=== PATIENT | female | born 1985 | race Two or more races ===

== ENCOUNTER 2019-07-08 13:04 | Emergency (ER) | payer BC ==
[~2019-07-08] VITALS: Ht 152.4 cm; Wt 59.0 kg
[~2019-07-08 13:04] MED LIST: PREN-96 PO
[2019-07-08] MEDS ORDERED: SODIUM CHLORIDE 0.9% 1,000 ML IV ONE (13:20)
[2019-07-08 13:34] VITALS: BP 134/89
[2019-07-08 13:57] LABS: Eosinophils # (auto) 0.1 uL; Lymphocytes # (auto) 1.2 uL
[2019-07-08 13:58] LABS: Basophils # (auto) 0.1 uL; Basophils % (auto) 1.5 % (0.0-2.0); Hematocrit 34.9 % (36.0-46.0); Hemoglobin 11.9 g/dL (12.2-16.2); Mean Corpuscular Hemoglobin 27.1 pg (28.0-32.0); Mean Corpuscular Hgb Conc. 34.1 g/dL (32.0-36.0); Mean Corpuscular Volume 79.5 fL (80.0-100.0); Monocytes # (auto) 0.3 uL; Monocytes % (auto) 4.4 % (0.0-12.0); Neutrophils # (auto) 4.5 uL; Neutrophils % (auto) 73.1 % (37.0-80.0); Platelet Count (auto) 276 10^3/uL (140-450); Red Blood Cells 4.39 10^6/uL (4.0-5.20); Red Cell Distribution Width 15.4 % (11.8-14.3); White Blood Cell 6.2 10^3/uL (4.4-10.8)
[2019-07-08 14:05] LABS: Urine WBC None Seen /hpf (0 - 5)
[2019-07-08 14:14] LABS: Urine Bacteria NONE SEEN /hpf (None Seen); Urine Blood 1+ /uL (Negative); Urine Mucus FEW (None Seen); Urine Specific Gravity 1.006 (1.001-1.035)
[2019-07-08 14:27] LABS: Alanine Aminotransferase 33 U/L (13-56); Albumin 3.8 g/dL (3.4-5.0); Anion Gap 4 (5-15); Aspartate Aminotransferase 19 U/L (15-37); BUN/Creatinine Ratio 13.1; Blood Urea Nitrogen 8 mg/dL (7-18); Calcium 8.3 mg/dL (8.5-10.1); Carbon Dioxide 26 mmol/L (21-32); Chloride 108 mmol/L (98-107); GFR African American 145 mL/min; GFR Non-African American 120 mL/min; Glucose 119 mg/dL (74-106); Magnesium 1.9 mg/dL (1.6-2.6); Sodium 138 mmol/L (136-145)
[2019-07-08 14:32] LABS: Alkaline Phosphatase 72 U/L (45-117); Bilirubin, Total 0.2 mg/dL (0.2-1.0); Total Protein 7.4 g/dL (6.4-8.2)
== END 2019-07-08 14:53 | disposition home or self-care (01) ==
LOC: ER 13:04
DX: R42 Dizziness and giddiness (principal); R00.2 Palpitations
CPT/HCPCS: 36415; 80053; 81001; 83735; 84484; 85025; 93005; 96360; 99284; J7030

== ENCOUNTER 2024-04-08 10:11 | Inpatient (IN) | payer BC ==
[2024-04-04 10:21] LABS: Urine Bacteria None Seen /hpf (None Seen)
[2024-04-04 10:34] LABS: Basophils # (auto) 0 10 ^3/uL (0-0.2); Basophils % (auto) 0.5 % (0.0-2.0); Eosinophils # (auto) 0.1 10 ^3/uL (0-0.8); Eosinophils % (auto) 2.3 % (0.0-7.0); Hematocrit 33.8 % (36.0-46.0); Hemoglobin 10.5 g/dL (12.2-16.2); Lymphocytes # (auto) 1.9 10 ^3/uL (0.4-5.4); Lymphocytes % (auto) 39.8 % (10.0-50.0); Mean Corpuscular Hemoglobin 22.5 pg (28.0-32.0); Mean Corpuscular Hgb Conc. 31.2 g/dL (32.0-36.0); Mean Corpuscular Volume 72.3 fL (80.0-100.0); Monocytes # (auto) 0.4 10 ^3/uL (0-1.3); Monocytes % (auto) 7.9 % (0.0-12.0); Neutrophils # (auto) 2.4 10 ^3/uL (1.6-8.6); Neutrophils % (auto) 49.5 % (37.0-80.0); Platelet Count (auto) 402 10^3/uL (140-450); Red Blood Cells 4.67 10^6/uL (4.0-5.20); Red Cell Distribution Width 17.5 % (11.8-14.3); White Blood Cell 4.9 10^3/uL (4.4-10.8)
[2024-04-04 10:42] LABS: Urine Blood 3+ /uL (Negative); Urine Clarity Clear (Clear); Urine Color Light-Yellow (Yellow); Urine Protein, UAD Negative (Negative); Urine Specific Gravity 1.024 (1.001-1.035); Urine Urobilinogen Normal (Negative); Urine WBC 1 /hpf (0 - 5); Urine pH 7.5 (5.0-9.0)
[2024-04-04 10:52] LABS: INR 1.03 (0.9-1.15); Partial Thromboplastin Time 28.7 SEC (24.5-34.5); Prothrombin Time 10.9 sec (9.3-11.8)
[2024-04-04 11:13] LABS: Alanine Aminotransferase 14 U/L (7-40); Alkaline Phosphatase 69 U/L (46-116); Anion Gap 5 (5-15); BUN/Creatinine Ratio 17.1 (10.0-20.0); Blood Urea Nitrogen 12 mg/dL (9-23); Calcium 9.7 mg/dL (8.7-10.4); Carbon Dioxide 27 mmol/L (20-30); Chloride 107 mmol/L (98-107); Glucose 90 mg/dL (74-106); Sodium 139 mmol/L (136-145)
[2024-04-04 11:14] LABS: Albumin 4.4 g/dL (3.2-4.8); Aspartate Aminotransferase 11 U/L (13-40); Bilirubin, Total 0.4 mg/dL (0.2-1.0); Total Protein 7.4 g/dL (5.7-8.2)
[~2024-04-08] VITALS: Ht 152.4 cm; Wt 74.9 kg
[2024-04-08] MEDS ORDERED: NEOSTIGMINE 1 MG/ML INJ (10mg/10ML VIAL) ONE (11:00)
[2024-04-08] MEDS ORDERED: PROPOFOL 10 MG/ML 20 ML IV ONE (11:00)
[2024-04-08] MEDS ORDERED: LIDOCAINE 1% INJ PF 5ML AMP ONE (11:00)
[2024-04-08] MEDS ORDERED: GLYCOPYRROLATE 0.2 MG/ML 1ML VIAL ONE (11:00)
[2024-04-08] MEDS ORDERED: SODIUM CHLORIDE LOCK 50 ML ONE (11:00)
[2024-04-08] MEDS ORDERED: MIDAZOLAM HCL 2MG/2ML 2ml VIAL (1mg/ml) ONE (11:00)
[2024-04-08] MEDS ORDERED: fentaNYL CITRATE 100 MCG/2 ML VL ONE (11:00)
[2024-04-08] MEDS ORDERED: LIDOCAINE HCL 2% TOP JELLY 5ML TOP ONE (11:00)
[2024-04-08] MEDS ORDERED: MEPERIDINE HCL (25 MG/ML) 1ML VIAL ONE (11:00)
[2024-04-08] MEDS ORDERED: ROCURONIUM 10MG/ML 10ML VIAL IV ONE (11:00)
[2024-04-08] MEDS ORDERED: KETAMINE 50mg/ML 1ml syringe ONE (11:00)
[2024-04-08] MEDS ORDERED: fentaNYL CITRATE 5 ML ONE (11:00)
[2024-04-08] MEDS ORDERED: ONDANSETRON HCL 4 MG/2 ML VIAL ONE (11:00)
[2024-04-08] MEDS ORDERED: MORPHINE SULFATE INJ 2 MG/ml SYRG IV PRN ×2 (12:30→12:45)
[2024-04-08] MEDS ORDERED: fentaNYL CITRATE 100 MCG/2 ML VL IV PRN (12:30)
[2024-04-08] MEDS ORDERED: HYDROmorphone HCL 2 MG/ML VL/or syr IV PRN ×2 (12:30)
[2024-04-08] MEDS ORDERED: NITROGLYCERIN 0.4 MG SL TAB SL PRN (12:45)
[2024-04-08] MEDS ORDERED: ACETAMINOPHEN 500 MG TAB PO PRN (12:45)
[2024-04-08] MEDS ORDERED: ONDANSETRON HCL 4 MG/2 ML VIAL IV PRN (12:45)
[2024-04-08] MEDS: BUPIVACAINE 0.25% INJ 50ML VIAL ONE (14:00)
[2024-04-08] MEDS: METHYLENE BLUE 0.5% 5MG/ML 10ml AMP IV ONE ×2 (14:01→17:35)
[2024-04-08] MEDS: LIDOCAINE W/ EPINEPHRINE 1% 20ML VIAL ONE ×2 (14:01→17:36)
[2024-04-08] MEDS ORDERED: SUGAMMADEX 200mg/2ml Vial (100MG/ML) IV ONE (15:36)
[2024-04-08 16:07] VITALS: PULSE 95; RESP 13
[2024-04-08] MEDS: HYDROmorphone HCL 2 MG/ML VL/or syr ONE (16:20)
[2024-04-08 17:00] VITALS: BP 109/71; PULSE 98; RESP 16; TEMP 97.8; O2SAT 95
[2024-04-08 17:30] VITALS: BP 102/66; PULSE 93; PULSE 98; RESP 14; RESP 16; TEMP 97.7; O2SAT 95
[2024-04-08] MEDS: CLINDAMYCIN 600MG IV 50 ML IV ONE (17:35)
[2024-04-08] MEDS: KETOROLAC TROMETH 30 MG/ML 1ML VIAL IV ONE (17:35)
[2024-04-08] MEDS: METOCLOPRAMIDE HCL 5MG/ml INJ 2ml VIAL IV ONE (17:35)
[2024-04-08] MEDS: GELATIN 1 SPONGE SIZE 100 TOP ONE (17:36)
[2024-04-08] MEDS: CLINDAMYCIN 600MG IV 50 ML IV SCH (17:36)
[2024-04-08] MEDS: SODIUM CHLORIDE 0.9% 1,000 ML IV SCH (17:36)
[2024-04-08] MEDS: CONJ ESTROGENS 0.625MG/GM VAG CRM 30GM PV ONE (17:37)
[2024-04-08 17:44] VITALS: TEMP 98
[2024-04-08] MEDS ORDERED: SERT-206 PO (17:58)
[2024-04-08 20:00] VITALS: O2SAT 98
[2024-04-08 21:00] VITALS: BP 112/70; PULSE 104; RESP 19; TEMP 98.3; O2SAT 93
[2024-04-09] VITALS (7 sets, daily range): BP systolic 100–119; BP diastolic 67–81; PULSE 86–102; RESP 0–20; TEMP 36.8; O2SAT 94–97
[2024-04-09] MEDS: HYDROcodone-ACET 5/325MG TAB PO PRN (00:29)
[2024-04-09] MEDS: DOCUSATE SOD 100 MG CAP PO PRN (02:24)
[2024-04-09] MEDS: MORPHINE SULFATE 4 MG/ML SYR/VIAL IV PRN (14:01)
[2024-04-09] MEDS: SIMETHICONE 80 MG CHEWABLE TABLET PO ONE (14:01)
[2024-04-09] MEDS ORDERED: SUCCINYLCHOLINE CHLORIDE 20 MG/ML 10ML VIAL IV ONE (14:29)
== END 2024-04-09 14:30 | disposition home or self-care (01) | DRG 743 ==
LOC: SUR 10:11 → OVERFLOW 12:38 → WEST WING 17:43
PROVIDERS: ADMIT Obstetrics & Gynecology; ATTEND Obstetrics & Gynecology
PROC: 0UB78ZZ Excision of Bilateral Fallopian Tubes, Via Natural or Artificial Opening Endoscopic (ICD-10-PCS; 2024-04-08)
PROC: 0TSD4ZZ Reposition Urethra, Percutaneous Endoscopic Approach (ICD-10-PCS; 2024-04-08)
PROC: 0UT98ZL Resection of Uterus, Supracervical, Via Natural or Artificial Opening Endoscopic (ICD-10-PCS; principal; 2024-04-08 13:05)
DX: N81.4 Uterovaginal prolapse, unspecified (principal); Z30.2 Encounter for sterilization
CPT/HCPCS: 36415; 80053; 81001; 84702; 85025; 85610; 85730; 86850; 86900; 86901; 87086; C1771; G0378; J0330; J2250; J2405; J2704; J3490